=== PATIENT | male | born 1975 | race Caucasian/White ===

== ENCOUNTER 2020-09-16 15:52 | Emergency (ER) | payer OTHER, SELFPAY ==
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
[2020-09-16 16:04] VITALS: BP 148/91; PULSE 102; RESP 16; TEMP 36.9; O2SAT 97; BMI 28.2
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
== END 2020-09-16 18:22 | disposition home or self-care (01) ==
PROVIDERS: Emergency Provider Internal Medicine
DX: S62.101A Fracture of unspecified carpal bone, right wrist, initial encounter for closed fracture (principal); G44.309 Post-traumatic headache, unspecified, not intractable; M79.631 Pain in right forearm; M54.2 Cervicalgia; R55 Syncope and collapse; V43.52XA Car driver injured in collision with other type car in traffic accident, initial encounter; Y93.9 Activity, unspecified; Y92.410 Unspecified street and highway as the place of occurrence of the external cause; Y99.9 Unspecified external cause status
CPT/HCPCS: 70450; 72125; 73110; 73130; 99283; 99284

== ENCOUNTER 2020-09-19 08:57 | Outpatient (REF) | payer OTHER, SELFPAY ==
--- NOTE | 2020-09-19 09:37 | XR_ITS ---
EXAMINATION: XR WRIST, RIGHT CLINICAL INFORMATION: Pain COMPARISON: Previous x-ray 09/16/2020 TECHNIQUE: Oblique and scaphoid views of the right wrist. FINDINGS: There is a displaced fracture fragment seen projecting over the dorsal radial carpal joint on the more lateral oblique view. Donor site is uncertain. There is dorsal soft tissue swelling. XR/XR wrist RT min 3V IMPRESSION: Displaced fracture fragment projecting over the dorsal radiocarpal joint similar to 09/16/2020 exam. Donor site of fracture fragment is uncertain. This could be further evaluated with CT if clinically indicated.
== END 2020-09-19 08:58 | disposition home or self-care (01) ==
LOC: HO.HOSX 08:57
PROVIDERS: PCP Internal Medicine; Referring Provider Internal Medicine; Visit Provider Orthopaedic Surgery
DX: S52.501A Unspecified fracture of the lower end of right radius, initial encounter for closed fracture (principal); M79.641 Pain in right hand
CPT/HCPCS: 73110

== ENCOUNTER 2020-10-22 09:09 | Outpatient (REF) | payer OTHER, SELFPAY ==
--- NOTE | 2020-10-22 09:10 | XR_ITS ---
EXAMINATION: XR HAND, RIGHT CLINICAL INFORMATION: Pain. COMPARISON: None TECHNIQUE: Four views of the right hand. FINDINGS: There is no visible acute fracture, dislocation or subluxation. There is a small bone fragment overlying adjacent ulnar styloid process on the lateral view. Exact origin of this fragment is not known and not seen on either images. The carpal tunnel view reveals no fracture or soft tissue calcification. No bony erosive changes. Mild dorsal wrist soft tissue swelling seen. XR/XR hand RT min 3V IMPRESSION: Small bone fragment seen adjacent to the ulnar styloid process on lateral view. Exact origin is not known. There is mild dorsal wrist soft tissue swelling.
--- NOTE | 2020-10-22 09:22 | XR_ITS ---
EXAMINATION: XR HAND, RIGHT CLINICAL INFORMATION: Pain. COMPARISON: None TECHNIQUE: Four views of the right hand. FINDINGS: There is no visible acute fracture, dislocation or subluxation. There is a small bone fragment overlying adjacent ulnar styloid process on the lateral view. Exact origin of this fragment is not known and not seen on either images. The carpal tunnel view reveals no fracture or soft tissue calcification. No bony erosive changes. Mild dorsal wrist soft tissue swelling seen. XR/XR hand RT 2V IMPRESSION: Small bone fragment seen adjacent to the ulnar styloid process on lateral view. Exact origin is not known. There is mild dorsal wrist soft tissue swelling.
== END 2020-10-22 09:10 | disposition home or self-care (01) ==
LOC: HO.HOSX 09:09
PROVIDERS: Visit Provider Orthopaedic Surgery
DX: S52.501A Unspecified fracture of the lower end of right radius, initial encounter for closed fracture (principal)
CPT/HCPCS: 73120; 73130